=== PATIENT | male | born 1980 | race Two or more races ===

== ENCOUNTER 2017-08-21 14:32 | Emergency (ER) | payer MEDICAID ==
[~2017-08-21] VITALS: Ht 180.3 cm; Wt 100.0 kg
[2017-08-22] MEDS ORDERED: IBUPROFEN 600MG TABLET PO ONE (02:00)
[2017-08-22 08:30] VITALS: BP 131/76
== END 2017-08-22 10:43 | disposition home or self-care (01) ==
LOC: ER 14:32
DX: M79.671 Pain in right foot (principal); M79.643 Pain in unspecified hand; F32.9 Major depressive disorder, single episode, unspecified; I10 Essential (primary) hypertension; F17.200 Nicotine dependence, unspecified, uncomplicated; V49.9XXA Car occupant (driver) (passenger) injured in unspecified traffic accident, initial encounter; Y93.02 Activity, running; Y99.8 Other external cause status; Y92.098 Other place in other non-institutional residence as the place of occurrence of the external cause
CPT/HCPCS: 29515; 73630; 82962; 99284; Z7610